=== PATIENT | female | born 1990 | race Hispanic/Latino ===

== ENCOUNTER 2019-06-18 06:52 | Observation (INO) | payer MEDICAID, OTHER ==
[~2019-06-18] VITALS: Ht 149.9 cm; Wt 74.4 kg
[~2019-06-18 06:52] MED LIST: LEVO500T2 PO
[2019-06-18] MEDS ORDERED: LACTATED RINGERS 1000ML 1,000 ML IV SCH (07:15)
[2019-06-18 07:18] LABS: APPEARANCE,URINE CLEAR (CLEAR); BILIRUBIN,URINE NEGATIVE (NEGATIVE); COLOR,URINE YELLOW (YELLOW); GLUCOSE, URINE (UA) NEGATIVE (NEGATIVE); KETONES,URINE NEGATIVE (NEGATIVE); LEUKOCYTE ESTERASE ,URINE SMALL (NEGATIVE); NITRATE,URINE NEGATIVE (NEGATIVE); OCCULT BLOOD,URINE NEGATIVE (NEGATIVE); PH,URINE 6.5 (5.0-8.0); PROTEIN,URINE NEGATIVE (NEGATIVE); UROBILINOGEN,URINE 0.2 mg/dL (0.2-1.0)
[2019-06-18 07:32] LABS: BACTERIA,URINE Many /HPF (None Seen); RBC,URINE 0-1 /HPF (0-1); SQUAMOUS EPITHELIAL CELL,UR Few /HPF (0-2)
[2019-06-18] MEDS ORDERED: LACTATED RINGERS 1000ML 1,000 ML IV PRN (07:44)
[2019-06-18] MEDS ORDERED: CEFTRIAXONE SODIUM 1 GM IVP SCH (07:45)
[2019-06-18 09:53] LABS: HEMATOCRIT 33.8 % (36-48); MEAN CORPUSCULAR HEMOGLOBIN 30.8 pg (27.0-33.0); MEAN CORPUSCULAR VOLUME 90.6 fL (79-99); PLATELET COUNT (AUTO) 325 K/uL (130-400); RED BLOOD CELL COUNT(AUTO) 3.73 MIL/uL (4.00-5.50); RED CELL DISTRIBUTION WIDTH 13.1 % (11.0-15.5); WHITE BLOOD COUNT (AUTO) 12.2 K/uL (4.8-10.8)
[2019-06-18 12:00] VITALS: BP 119/64
== END 2019-06-18 13:23 | disposition home or self-care (01) ==
LOC: EDH 06:52 → LDH 06:53
PROVIDERS: ADMIT Obstetrics & Gynecology; ATTEND Obstetrics & Gynecology
DX: O99.89 Other specified diseases and conditions complicating pregnancy, childbirth and the puerperium (principal); M54.5 Low back pain; O26.893 Other specified pregnancy related conditions, third trimester; R30.9 Painful micturition, unspecified; Z3A.29 29 weeks gestation of pregnancy
CPT/HCPCS: 36415; 76770; 76805; 81001; 85027; 87077; 87088; 87186; 96374; 99284; G0378 ×6; J0696; J7120 ×2; 96360; 96361

== ENCOUNTER 2019-08-09 23:17 | Inpatient (IN) | payer MEDICAID ==
[~2019-08-09] VITALS: Ht 149.9 cm; Wt 67.6 kg
[2019-08-09 23:50] LABS: APPEARANCE,URINE Cloudy (CLEAR); BILIRUBIN,URINE Negative (NEGATIVE); COLOR,URINE Yellow (YELLOW); GLUCOSE, URINE (UA) Negative (NEGATIVE); KETONES,URINE Negative (NEGATIVE); LEUKOCYTE ESTERASE ,URINE Moderate (NEGATIVE); NITRATE,URINE Negative (NEGATIVE); OCCULT BLOOD,URINE Negative (NEGATIVE); PH,URINE 5.5 (5.0-8.0); PROTEIN,URINE Negative (NEGATIVE); UROBILINOGEN,URINE 0.2 mg/dL (0.2-1.0)
[2019-08-10 00:03] LABS: AMPHET/METH SCREEN,URINE NEGATIVE (NEGATIVE); BARBITURATE SCREEN, URINE NEGATIVE (NEGATIVE); BENZODIAZEPINES SCREEN,URINE NEGATIVE (NEGATIVE); CANNABINOID SCREEN,URINE NEGATIVE (NEGATIVE); COCAINE SCREEN,URINE NEGATIVE (NEGATIVE); OPIATE SCREEN,URINE NEGATIVE (NEGATIVE); PHENCYCLIDINE SCREEN,URINE NEGATIVE (NEGATIVE)
[2019-08-10 00:06] LABS: BACTERIA,URINE Few /HPF (None Seen); MUCUS,URINE Few LPF (None Seen); RBC,URINE 0-1 /HPF (0-1); SQUAMOUS EPITHELIAL CELL,UR Rare /HPF (0-2)
[2019-08-10] MEDS ORDERED: LACTATED RINGERS 1000ML 1,000 ML IV PRN (00:29)
[2019-08-10] MEDS ORDERED: MEPERIDINE-PF 50 MG/ML SYG IVP ONE (00:30)
[2019-08-10] MEDS ORDERED: AMPICILLIN 2GM+NS 100ML 100 ML IV SCH (00:30)
[2019-08-10] MEDS ORDERED: PROMETHAZINE HCL 25 MG/ML 1ML AMPULE IM SCH ×2 (00:30→08:30)
[2019-08-10] MEDS ORDERED: AMPICILLIN 2GM+NS 100ML 100 ML IV ONE (00:34)
[2019-08-10 00:42] LABS: HEMATOCRIT 36.7 % (36-48); MEAN CORPUSCULAR HEMOGLOBIN 30.3 pg (27.0-33.0); MEAN CORPUSCULAR HGB CONC 34.3 g/dL (32.0-36.0); MEAN CORPUSCULAR VOLUME 88.2 fL (79-99); PLATELET COUNT (AUTO) 322 K/uL (130-400); RED BLOOD CELL COUNT(AUTO) 4.16 MIL/uL (4.00-5.50); RED CELL DISTRIBUTION WIDTH 13.2 % (11.0-15.5)
[2019-08-10] MEDS ORDERED: MEPERIDINE-PF 50 MG/ML SYG IVP SCH (08:30)
[2019-08-10] MEDS ORDERED: MEPERIDINE-PF 50 MG/ML SYG ONE (08:40)
[2019-08-10] MEDS: AMPICILLIN 1GM+NS 50ML 50 ML IV SCH ×2 (08:42→12:31)
[2019-08-10] MEDS ORDERED: LACTATED RINGERS 500 ML 500 ML IV PRN (09:30)
[2019-08-10] MEDS ORDERED: NALOXONE HCL 0.4 MG/1 ML ML IV PRN (09:30)
[2019-08-10] MEDS ORDERED: ROPIVACAINE 0.2% 100ML VIAL 100 ML EP SCH (09:30)
[2019-08-10] MEDS ORDERED: EPHEDRINE SULFATE 50 MG/ML AMPULE IVP PRN (09:30)
[2019-08-10 09:40] LABS: RAPID PLASMA REAGIN NONREACTIVE (NONREACTIVE)
[2019-08-10] MEDS ORDERED: FENTANYL CITRATE PF 50 MCG/1 ML 2ML VIAL ONE (09:56)
[2019-08-10] MEDS ORDERED: METHYLERGONOVINE MALEATE 0.2 MG/1 ML ML ONE (13:14)
[2019-08-10] MEDS ORDERED: OXYTOCIN-LR 20 UNITS/1000 ML 1,000 ML IV ONE (13:15)
[2019-08-10] MEDS ORDERED: WITCH HAZEL 1 PAD TP PRN (13:30)
[2019-08-10] MEDS ORDERED: ACETAMINOPHEN 325 MG TAB PO PRN (13:30)
[2019-08-10] MEDS ORDERED: OXYTOCIN-LR 20 UNITS/1000 ML 1,000 ML IV SCH (13:30)
[2019-08-10] MEDS ORDERED: DIPH,PERTUSS(ACELL),TET VAC/PF 0.5 ML VIAL IM PRN (13:30)
[2019-08-10] MEDS ORDERED: LANOLIN 30GM OINTMENT TP PRN (13:30)
[2019-08-10] MEDS ORDERED: IBUPROFEN 600 MG TABLET PO PRN (13:30)
[2019-08-10] MEDS ORDERED: BENZOCAINE/LANOLIN/ALOE VERA 60 ML AEROSOL TP PRN (13:30)
[2019-08-10] MEDS ORDERED: PHARMACY COMMUNICATION MISC SCH (13:45)
[2019-08-10] MEDS ORDERED: ONDANSETRON HCL 4 MG/2 ML VIAL ONE (15:26)
[2019-08-10 16:23] VITALS: BP 95/47
--- NOTE | 2019-08-10 18:30 | NUR ---
BR ASSISTANCE ASSISTED UP TO BR, STEADY GAIT OBSERVED. VOIDED, PERICARE GIVEN AND UNDERPADS CHANGED. ASSISTED BACK TO BED AND DINNER TRAY PROVIDED.
[2019-08-10] MEDS: ACETAMINOPHEN-CODEINE 300/30MG TAB PO PRN (18:52)
--- NOTE | 2019-08-10 19:40 | NUR ---
Reinforcing teaching on donning of face mask due to infection precautions. Pt and pt's sister verbalize understanding, restate rationale for precautions; and agree to don face masks and practice hand washing.
--- NOTE | 2019-08-10 19:45 | NUR ---
Received pt a/a/ox3; sister at bedside with car seat. Explaining current plan of care; pain management options and regular visits for pt observation & nursing care. Instructing to call for any assistance, pain or discomfort. Encouraging non skid slippers while walking, pt agrees. Reinforcing teaching on NBN phone number, nurse call button, normal rubra & mild cramping common; informing of normal mood swings common immediate after delivery, instructing to report depression lasting longer than 2 weeks; instructing to report increase in bleeding, pain or discomfort, concerns, cough or feeling feverish. Pt and pt's sister verbalize understanding & agree to teaching & instructions. Deny questions at present.
[2019-08-10] MEDS: DOCUSATE SODIUM 100 MG CAP PO SCH (20:07)
--- NOTE | 2019-08-10 20:15 | NUR ---
Physical assessment complete. Reinforcing teaching on VTE precautions, informing of negative Homans Sign, instructing to report pain or tenderness to calf's while at home, explaining risk for VTE due to . Pt & pt's sister verbalize understanding & agree to teaching & instructions.
[2019-08-10 20:18] VITALS: BP 121/68
--- NOTE | 2019-08-10 20:45 | NUR ---
Pt up in bathroom; assisting & instructing on eliel pads with assistance from sister. Explaining large pad use is common immediate after delivery due to increase rubra, and as rubra decrease common to use eliel pads instead of large blue & pink eliel pads. TUCKS pads applied to eliel pad for mild labial edema, instructing on use of TUCKS to decrease swelling & discomfort. Pt and pt's sister verbalize understanding & agree to teaching and instructions. Reinforcing teaching to report increase bleeding or any signs of clots, pt agrees.
--- NOTE | 2019-08-11 00:05 | NUR ---
Currently ; instructing to call when ready for vital signs & assessment. Pt agrees, denies pain or discomfort at present. Addendum: 08/11/19 at 0006 by KANDICE CHRISTY RN RN Amended: Links added.
[2019-08-11 00:30] VITALS: BP 114/68
--- NOTE | 2019-08-11 00:30 | NUR ---
VS after pt voiding 500ml yellow urine; demonstrating proper eliel care and changing eliel pads; applying TUCKs correctly. Pt returning to bed for midnight assessment. Explaining plan to discontinue IV, encouraging fluids and prn snacks to prevent dehydration; informing of adequate nutrition required while and ; pt voices understanding & agrees to teaching; Providing jello & apple sauce, fresh iced water, and juices. Offering sandwich tray as needed for her and her sister, pt refusing at present.
[2019-08-11 05:00] VITALS: BP 98/63
[2019-08-11 06:59] LABS: HEMATOCRIT 30.9 % (36-48); MEAN CORPUSCULAR HEMOGLOBIN 30.6 pg (27.0-33.0); MEAN CORPUSCULAR VOLUME 90.1 fL (79-99); PLATELET COUNT (AUTO) 239 K/uL (130-400); RED BLOOD CELL COUNT(AUTO) 3.43 MIL/uL (4.00-5.50); RED CELL DISTRIBUTION WIDTH 13.4 % (11.0-15.5); WHITE BLOOD COUNT (AUTO) 16.4 K/uL (4.8-10.8)
[2019-08-11] MEDS: ACETAMINOPHEN-CODEINE 300/30MG TAB PO PRN (07:27)
[2019-08-11 08:19] VITALS: BP 94/58
[2019-08-11] MEDS: DOCUSATE SODIUM 100 MG CAP PO SCH (09:00)
[2019-08-11 11:55] VITALS: BP 109/45
--- NOTE | 2019-08-11 13:38 | NUR ---
DISCHARGE DISCHARGED VIA WHEELCHAIR WITH BABY IN ARMS, DEPARTED PER PRIVATE VEHICLE WITH SISTER IN STABLE CONDITION.
[2019-08-13 08:13] LABS: HEPATITIS Bs ANTIGEN SCREEN P Negative (Negative)
== END 2019-08-11 13:51 | disposition home or self-care (01) | DRG 560 ==
LOC: EDH 23:17 → LDH 23:30 → OBSVTOIN 23:30 → WSH 08-10 15:07
PROVIDERS: ADMIT Obstetrics & Gynecology; ATTEND Obstetrics & Gynecology
PROC: 10E0XZZ Delivery of Products of Conception, External Approach (ICD-10-PCS; principal; 2019-08-10)
PROC: 10907ZC Drainage of Amniotic Fluid, Therapeutic from Products of Conception, Via Natural or Artificial Opening (ICD-10-PCS; 2019-08-10)
PROC: 3E0R3BZ Introduction of Anesthetic Agent into Spinal Canal, Percutaneous Approach (ICD-10-PCS; 2019-08-10)
PROC: 00HU33Z Insertion of Infusion Device into Spinal Canal, Percutaneous Approach (ICD-10-PCS; 2019-08-10)
PROC: 3E0234Z Introduction of Serum, Toxoid and Vaccine into Muscle, Percutaneous Approach (ICD-10-PCS; 2019-08-10)
DX: O69.1XX0 Labor and delivery complicated by cord around neck, with compression, not applicable or unspecified (principal); Z37.0 Single live birth; O62.2 Other uterine inertia; Z23 Encounter for immunization; Z3A.36 36 weeks gestation of pregnancy
CPT/HCPCS: 36415; 80305; 81001; 85027; 86592; 86701; 86850; 86900; 86901; 87088; 87340; 87390; A4606; G0378; J0290; J2175; J2210; J2405; J2550; J2590; J3010; J7120

== ENCOUNTER 2021-09-09 07:44 | Emergency (ER) | payer MEDICAID ==
[~2021-09-09] VITALS: Ht 149.9 cm; Wt 59.0 kg
[2021-09-09 07:45] VITALS: BP 119/76
[2021-09-09] MEDS ORDERED: HYDR25CA PO (08:24)
== END 2021-09-09 08:38 | disposition home or self-care (01) ==
LOC: EDH 07:44
DX: O99.341 Other mental disorders complicating pregnancy, first trimester (principal); F43.0 Acute stress reaction; F41.0 Panic disorder [episodic paroxysmal anxiety]; Z88.3 Allergy status to other anti-infective agents; Z88.5 Allergy status to narcotic agent; Z88.6 Allergy status to analgesic agent; Z88.8 Allergy status to other drugs, medicaments and biological substances; Z3A.01 Less than 8 weeks gestation of pregnancy

== ENCOUNTER 2022-04-10 02:49 | Observation (INO) | payer MEDICAID ==
[~2022-04-10] VITALS: Ht 149.9 cm; Wt 69.9 kg
[~2022-04-10 02:49] MED LIST changes: +HYDR25CA PO
[2022-04-10 02:54] VITALS: BP 106/68
[2022-04-10 03:25] LABS: APPEARANCE,URINE CLEAR (CLEAR); BILIRUBIN,URINE NEGATIVE (NEGATIVE); COLOR,URINE LIGHT-YELLOW (YELLOW); GLUCOSE, URINE (UA) NEGATIVE (NEGATIVE); KETONES,URINE 5 mg/dL (NEGATIVE); LEUKOCYTE ESTERASE ,URINE 500 Leu/uL (NEGATIVE); NITRATE,URINE NEGATIVE (NEGATIVE); OCCULT BLOOD,URINE NEGATIVE (NEGATIVE); PH,URINE 5.5 (5.0-8.0); PROTEIN,URINE NEGATIVE (NEGATIVE); UROBILINOGEN,URINE 0.2 mg/dL (0.2-1.0)
[2022-04-10 03:32] LABS: MUCUS,URINE RARE LPF (None Seen); SQUAMOUS EPITHELIAL CELL,UR FEW /HPF (0-2)
[2022-04-10] MEDS: LACTATED RINGERS 1000ML IV PRN ×2 (04:39→05:05)
[2022-04-10] MEDS ORDERED: ACETAMINOPHEN 500 MG TABLET PO ONE (05:00)
[2022-04-12] MEDS ORDERED: PREN1TAB80 PO (17:19)
== END 2022-04-10 05:55 | disposition home or self-care (01) ==
LOC: EDH 02:49 → LDH 02:50 → EDH 02:57
PROVIDERS: ADMIT Internal Medicine; ATTEND Internal Medicine
DX: O62.9 Abnormality of forces of labor, unspecified (principal); Z3A.38 38 weeks gestation of pregnancy
CPT/HCPCS: 96360; 87088; 81001; G0378 ×3; G0379

== ENCOUNTER 2022-04-16 13:19 | Emergency (ER) | payer MEDICAID ==
[~2022-04-16] VITALS: Ht 149.9 cm; Wt 65.8 kg
[~2022-04-16 13:19] MED LIST changes: -HYDR25CA PO; -LEVO500T2 PO; +PREN1TAB80 PO
[2022-04-16] MEDS ORDERED: ACETAMINOPHEN 500 MG TABLET PO ONE (14:30)
[2022-04-16 14:40] LABS: BASOPHILS % (AUTO) 0.3 % (0.0-5.0); HEMATOCRIT 44.9 % (36-48); LYMPHOCYTES % (AUTO) 24.6 % (21.0-51.0); MEAN CORPUSCULAR HEMOGLOBIN 30.6 pg (27.0-33.0); MEAN CORPUSCULAR HGB CONC 34.1 g/dL (32.0-36.0); MEAN CORPUSCULAR VOLUME 89.8 fL (79-99); MONOCYTES % (AUTO) 5.3 % (3.0-13.0); NEUTROPHILS % (AUTO) 67.4 % (40.0-77.0); PLATELET COUNT (AUTO) 372 K/uL (130-400); RED CELL DISTRIBUTION WIDTH 13.4 % (11.0-15.5); WHITE BLOOD COUNT (AUTO) 10.9 K/uL (4.8-10.8)
[2022-04-16 14:57] LABS: CREATININE 0.8 mg/dL (0.5-1.5); POTASSIUM 3.8 mmol/L (3.5-5.1)
[2022-04-16 14:58] LABS: INR 0.93 (0.85-1.15); PROTHROMBIN TIME 9.8 SEC (9.6-11.6)
[2022-04-16 14:59] LABS: PARTIAL THROMBOPLASTIN TIME 26.4 SEC (26.3-35.5)
[2022-04-16 15:01] LABS: ALBUMIN 2.9 g/dL (3.5-5.0); TOTAL PROTEIN, SERUM 7.5 g/dL (6.0-8.3)
[2022-04-16 15:07] LABS: APPEARANCE,URINE CLEAR (CLEAR); BILIRUBIN,URINE NEGATIVE (NEGATIVE); COLOR,URINE COLORLESS (YELLOW); GLUCOSE, URINE (UA) NEGATIVE (NEGATIVE); KETONES,URINE NEGATIVE (NEGATIVE); LEUKOCYTE ESTERASE ,URINE 250 Leu/uL (NEGATIVE); NITRATE,URINE NEGATIVE (NEGATIVE); OCCULT BLOOD,URINE LARGE (NEGATIVE); PH,URINE 6.5 (5.0-8.0); PROTEIN,URINE NEGATIVE (NEGATIVE); UROBILINOGEN,URINE 0.2 mg/dL (0.2-1.0)
[2022-04-16 15:35] LABS: MUCUS,URINE RARE LPF (None Seen); SQUAMOUS EPITHELIAL CELL,UR RARE /HPF (0-2)
[2022-04-16] MEDS ORDERED: ONDANSETRON ODT 4MG TAB SL ONE (17:00)
[2022-04-16] MEDS ORDERED: ACETAMINOPHEN WITH CODEINE 1 TAB TAB PO ONE (17:00)
[2022-04-16 17:18] VITALS: BP 118/82
== END 2022-04-16 17:19 | disposition home or self-care (01) ==
LOC: EDH 13:19
DX: O89.4 Spinal and epidural anesthesia-induced headache during the puerperium (principal); Z88.3 Allergy status to other anti-infective agents; Z88.5 Allergy status to narcotic agent; Z88.6 Allergy status to analgesic agent; Z88.8 Allergy status to other drugs, medicaments and biological substances; Z79.899 Other long term (current) drug therapy
CPT/HCPCS: 36415; 62273; 80053; 81001; 85025; 85610; 85730; 87088